=== PATIENT | male | born 1975 | race Caucasian/White ===

== ENCOUNTER 2020-12-16 21:05 | Emergency (ER) | payer MEDICAID ==
[~2020-12-16] VITALS: Ht 165.1 cm; Wt 83.9 kg
[2020-12-16 21:07] VITALS: Ht 165.1 cm; Wt 83.9 kg
[2020-12-16 22:21] VITALS: BP 126/68
== END 2020-12-16 22:21 | disposition home or self-care (01) ==
LOC: ED 21:05
DX: J12.9 Viral pneumonia, unspecified (principal)